=== PATIENT | female | born 1955 | race Caucasian/White ===

== ENCOUNTER 2020-06-16 08:25 | Observation (INO) ==
[~2020-06-16 08:25] MED LIST: Dexamethasone IV 8 MG in Premix IV 0 ML IV SCH; ETOPOSIDE IVPB SCH; NS 0.9% IVPB SCH; Sodium Phosphate ADULT ENEMA 133 ML BTL PR SCH
[2020-06-16] MEDS ORDERED: PALONOSETRON HCL 0.05 MG/ML (0.25 MG) SYRINGE (0.05 MG/ML) ONE (09:42)
[2020-06-16] MEDS ORDERED: Prochlorperazine 5 mg/ml 2 ml VIAL (10 mg) IV PRN (15:32)
[2020-06-16] MEDS ORDERED: Albuterol/Ipratropium NEB.SOL (2.5/0.5 MG) 3 ML NEB.SOLN INH PRN (16:52)
[2020-06-16] MEDS ORDERED: PEG 3000 GI LAVAGE 1 GALLON PO ONE (17:30)
[2020-06-16] MEDS ORDERED: Albuterol HFA INHALER 8 gm MDI INH PRN (17:32)
[2020-06-16] MEDS: NS 0.9% 1000 ml BAG 1,000 ML IV SCH (17:42)
[2020-06-16] MEDS: Mometasone/Formoter 200/5 MDI INH SCH (20:10)
[2020-06-16] MEDS: CMCS:Cyclosporine 0.05% OPHTH (NF) 0.4 ML VIAL BOTH EYES SCH (22:36)
[2020-06-16] MEDS: Enoxaparin 40 MG/0.4 ML SYR SUBCUT SCH ×2 (22:37→22:39)
[2020-06-17] MEDS: NS 0.9% 1000 ml BAG 1,000 ML IV SCH ×4 (00:19→23:02)
[2020-06-17 06:27] LABS: ABS Lymphocytes 0.7 10^3/ul (1.0-4.8); ABS Monocytes 0.3 10^3/ul (0-0.8); ABS Neutrophils 9.3 10^3/ul (1.5-7.7); Eosinophil % 0.1 %; Hematocrit 34 % (35-47); Hemoglobin 11.3 g/dL (12.0-16.0); Lymphocyte % 6.6 %; Mean Corpuscular HGB Conc 34 g/dL (31-36); Mean Corpuscular Hemoglobin 32 pg (27-31); Mean Corpuscular Volume 95 fL (80-97); Mean Platelet Volume 7.8 fL (7.4-10.4); Platelet Count 403 10^3/uL (150-450); Red Blood Count 3.54 10^6 /uL (3.70-4.87); Red Cell Distribution Width 14 % (10-15); White Blood Count 10.3 10^3/uL (3.5-10.8)
[2020-06-17 06:47] LABS: Albumin 3.4 g/dL (3.2-5.2); Albumin/Globulin Ratio 1.4 (1-3); BUN/Creatinine Ratio 40.7 (8-20); Calcium 8.2 mg/dL (8.6-10.3); Globulin 2.5 g/dL (2-4); Potassium 4.4 mmol/L (3.5-5.0); Total Bilirubin 0.3 mg/dL (0.2-1.0); Total Protein 5.9 g/dL (6.4-8.9)
[2020-06-17] MEDS: CMCS:Cyclosporine 0.05% OPHTH (NF) 0.4 ML VIAL BOTH EYES SCH ×2 (07:43→20:43)
[2020-06-17] MEDS: Mometasone/Formoter 200/5 MDI INH SCH ×2 (12:02→20:10)
[2020-06-17] MEDS: SPIRIVA Respimat (tiotropium) 2.5 mcg/inh Inhaler INH SCH (12:04)
[2020-06-17] MEDS ORDERED: Dexamethasone IV 4 MG/ML VIAL 1 ml VIAL IV SLOW PU ONE (14:00)
[2020-06-17] MEDS ORDERED: NS 0.9% IVPB ONE (14:30)
[2020-06-17] MEDS ORDERED: ETOPOSIDE IVPB ONE (14:30)
[2020-06-17] MEDS: Enoxaparin 40 MG/0.4 ML SYR SUBCUT SCH (22:24)
[2020-06-18 05:50] LABS: ABS Lymphocytes 0.7 10^3/ul (1.0-4.8); ABS Monocytes 0.1 10^3/ul (0-0.8); ABS Neutrophils 8.4 10^3/ul (1.5-7.7); Eosinophil % 0.4 %; Hematocrit 36 % (35-47); Hemoglobin 11.9 g/dL (12.0-16.0); Lymphocyte % 7.3 %; Mean Corpuscular HGB Conc 33 g/dL (31-36); Mean Corpuscular Hemoglobin 31 pg (27-31); Mean Corpuscular Volume 95 fL (80-97); Mean Platelet Volume 7.3 fL (7.4-10.4); Platelet Count 354 10^3/uL (150-450); Red Blood Count 3.81 10^6 /uL (3.70-4.87); Red Cell Distribution Width 14 % (10-15); White Blood Count 9.2 10^3/uL (3.5-10.8)
[2020-06-18 06:07] LABS: Albumin 3.1 g/dL (3.2-5.2); Albumin/Globulin Ratio 1.2 (1-3); BUN/Creatinine Ratio 28.6 (8-20); Calcium 8.3 mg/dL (8.6-10.3); EGFR African American 154.3 (>60); EGFR Non-African American 127.6 (>60); Globulin 2.5 g/dL (2-4); Potassium 4.4 mmol/L (3.5-5.0); Total Bilirubin 0.4 mg/dL (0.2-1.0); Total Protein 5.6 g/dL (6.4-8.9)
[2020-06-18] MEDS: NS 0.9% 1000 ml BAG 1,000 ML IV SCH (06:13)
[2020-06-18] MEDS: Mometasone/Formoter 200/5 MDI INH SCH (07:09)
[2020-06-18] MEDS: SPIRIVA Respimat (tiotropium) 2.5 mcg/inh Inhaler INH SCH (07:10)
[2020-06-18] MEDS: CMCS:Cyclosporine 0.05% OPHTH (NF) 0.4 ML VIAL BOTH EYES SCH (08:59)
[2020-06-18 11:06] VITALS: BP 96/83
== END 2020-06-18 16:10 | disposition home or self-care (01) ==
LOC: CHOA 08:25 → SSU 08:25
PROVIDERS: ADMIT Internal Medicine Hematology & Oncology; ATTEND Internal Medicine Hematology & Oncology

== ENCOUNTER 2020-10-02 06:30 | Inpatient (IN) ==
[2020-10-02] MEDS ORDERED: NS 0.9% 1000 ml BAG 1,000 ML IV ONE (07:03)
[2020-10-02 07:45] LABS: ABS Lymphocytes 1.6 10^3/ul (1.0-4.8); ABS Monocytes 0.6 10^3/ul (0-0.8); ABS Neutrophils 3.4 10^3/ul (1.5-7.7); Eosinophil % 0.8 %; Hematocrit 36 % (35-47); Hemoglobin 12.2 g/dL (12.0-16.0); Lymphocyte % 27.2 %; Mean Corpuscular HGB Conc 34 g/dL (31-36); Mean Corpuscular Hemoglobin 37 pg (27-31); Mean Corpuscular Volume 110 fL (80-97); Mean Platelet Volume 7.2 fL (7.4-10.4); Platelet Count 276 10^3/uL (150-450); Red Blood Count 3.26 10^6 /uL (3.70-4.87); Red Cell Distribution Width 15 % (10-15); White Blood Count 5.7 10^3/uL (3.5-10.8)
[2020-10-02 07:56] LABS: Albumin 3.7 g/dL (3.2-5.2); Albumin/Globulin Ratio 1.5 (1-3); Calcium 8.5 mg/dL (8.6-10.3); EGFR African American 107.6 (>60); EGFR Non-African American 88.9 (>60); Globulin 2.4 g/dL (2-4); Potassium 3.7 mmol/L (3.5-5.0); Total Bilirubin 0.4 mg/dL (0.2-1.0); Total Protein 6.1 g/dL (6.4-8.9)
[2020-10-02] MEDS ORDERED: Dexamethasone IV 4 MG/ML VIAL 1 ml VIAL IV SLOW PU ONE (08:18)
[2020-10-02 09:32] LABS: Urine Appearance Clear; Urine Bilirubin Negative (Negative); Urine Blood Negative (Negative); Urine Color Yellow; Urine Glucose Negative (Negative); Urine Ketones Negative (Negative); Urine Nitrite Negative (Negative); Urine Protein Negative (Negative); Urine Specific Gravity 1.005 (1.002-1.030); Urine Urobilinogen Negative (Negative)
[2020-10-02] MEDS ORDERED: levETIRAcetam 1000MG IVPREMIX 1,000 MG/100 ML BAG IVPB ONE (13:09)
[2020-10-02] MEDS ORDERED: Albuterol/Ipratropium NEB.SOL (2.5/0.5 MG) 3 ML NEB.SOLN INH SCH (14:00)
[2020-10-02] MEDS: Dexamethasone IV 4 MG/ML VIAL 1 ml VIAL IV SLOW PU SCH ×2 (14:26→20:58)
[2020-10-02] MEDS: NS 0.9% 1000 ml BAG 1,000 ML IV SCH (14:27)
[2020-10-02] MEDS ORDERED: Albuterol/Ipratropium NEB.SOL (2.5/0.5 MG) 3 ML NEB.SOLN INH PRN (15:22)
[2020-10-03] MEDS: Dexamethasone IV 4 MG/ML VIAL 1 ml VIAL IV SLOW PU SCH ×4 (01:11→19:57)
[2020-10-03] MEDS: levETIRAcetam 500 MG IVPREMIX 500 MG/100 ML BAG IV SCH ×2 (01:12→13:43)
[2020-10-03] MEDS: NS 0.9% 1000 ml BAG 1,000 ML IV SCH (04:21)
[2020-10-03 09:28] LABS: ABS Lymphocytes 0.7 10^3/ul (1.0-4.8); ABS Monocytes 0.2 10^3/ul (0-0.8); ABS Neutrophils 3.2 10^3/ul (1.5-7.7); Hematocrit 33 % (35-47); Hemoglobin 11.2 g/dL (12.0-16.0); Mean Corpuscular HGB Conc 34 g/dL (31-36); Mean Corpuscular Hemoglobin 37 pg (27-31); Mean Corpuscular Volume 110 fL (80-97); Mean Platelet Volume 7.8 fL (7.4-10.4); Platelet Count 264 10^3/uL (150-450); Red Blood Count 3.01 10^6 /uL (3.70-4.87); Red Cell Distribution Width 14 % (10-15); White Blood Count 4.1 10^3/uL (3.5-10.8)
[2020-10-03 09:38] LABS: EGFR African American 213.4 (>60); EGFR Non-African American 176.4 (>60); Potassium 3.6 mmol/L (3.5-5.0)
[2020-10-03 12:01] LABS: Corrected Retic Count 0.6 % (0.5-1.5); Hematocrit for Retic CNT 34 % (35-47); Immature Retic Fraction 0.32; RBC Retic Count 3.04 10^6/uL (3.70-4.87)
[2020-10-03 12:08] LABS: % Iron Saturation 18 % (15-55); Iron 47 ug/dL (50-212); Total Iron Binding Capacity 266 mcg/dL (250-450); Transferrin 190 mg/dL (203-362); Unsaturated Iron Binding < 251 ug/dL
[2020-10-03 12:33] LABS: Ferritin 57.5 ng/mL (11-307)
[2020-10-03 12:36] LABS: Folate 7.58 ng/mL (5.90-24.80)
[2020-10-03 12:37] LABS: Vitamin B12 173 pg/mL (180-914)
[2020-10-03] MEDS: Cyanocobalamin INJ 1,000 MCG/ML VIAL 1 ML VIAL IM SCH (13:25)
[2020-10-04] MEDS: levETIRAcetam 500 MG IVPREMIX 500 MG/100 ML BAG IV SCH ×2 (01:09→14:38)
[2020-10-04] MEDS: Dexamethasone IV 4 MG/ML VIAL 1 ml VIAL IV SLOW PU SCH ×3 (01:10→14:38)
[2020-10-04] MEDS: Cyanocobalamin INJ 1,000 MCG/ML VIAL 1 ML VIAL IM SCH (10:29)
[2020-10-04 17:49] LABS: Calcium 8.2 mg/dL (8.6-10.3); EGFR African American 144.1 (>60); EGFR Non-African American 119.1 (>60)
[2020-10-04] MEDS ORDERED: Gadoteridol (CONTRAST) 279.3 MG/ML 10 ML IV ONE (18:09)
[2020-10-04 18:56] LABS: Potassium 4.2 mmol/L (3.5-5.0)
[2020-10-05] MEDS: Cyanocobalamin INJ 1,000 MCG/ML VIAL 1 ML VIAL IM SCH (08:47)
[2020-10-05 11:05] VITALS: BP 128/89
== END 2020-10-05 13:36 | disposition home or self-care (01) ==
LOC: ED 06:30 → ICU 10:21 → SSU 10-03 15:31
PROVIDERS: ADMIT Internal Medicine; ATTEND Internal Medicine Hematology & Oncology

== ENCOUNTER 2020-10-10 06:58 | Inpatient (IN) ==
[2020-10-10] MEDS ORDERED: NS 0.9% 1000 ml BAG 1,000 ML IV ONE ×2 (07:17→11:09)
[2020-10-10 08:24] LABS: ABS Lymphocytes 1.4 10^3/ul (1.0-4.8); ABS Monocytes 1.2 10^3/ul (0-0.8); ABS Neutrophils 7.7 10^3/ul (1.5-7.7); Eosinophil % 0.1 %; Hematocrit 47 % (35-47); Hemoglobin 16.1 g/dL (12.0-16.0); Lymphocyte % 13.9 %; Mean Corpuscular HGB Conc 34 g/dL (31-36); Mean Corpuscular Hemoglobin 37 pg (27-31); Mean Corpuscular Volume 107 fL (80-97); Mean Platelet Volume 8.3 fL (7.4-10.4); Platelet Count 262 10^3/uL (150-450); Red Blood Count 4.37 10^6 /uL (3.70-4.87); Red Cell Distribution Width 14 % (10-15); White Blood Count 10.3 10^3/uL (3.5-10.8)
[2020-10-10 08:31] LABS: Albumin 3.9 g/dL (3.2-5.2); Albumin/Globulin Ratio 1.3 (1-3); Calcium 7.5 mg/dL (8.6-10.3); EGFR African American 105.7 (>60); EGFR Non-African American 87.4 (>60); Globulin 2.9 g/dL (2-4); Magnesium 2.8 mg/dL (1.9-2.7); Potassium 4.6 mmol/L (3.5-5.0); Total Bilirubin 0.8 mg/dL (0.2-1.0); Total Protein 6.8 g/dL (6.4-8.9)
[2020-10-10] MEDS ORDERED: Ondansetron 4 mg VIAL 2 MG/ML 2 ml VIAL IV PRN (11:09)
[2020-10-10] MEDS ORDERED: Albuterol/Ipratropium NEB.SOL (2.5/0.5 MG) 3 ML NEB.SOLN INH PRN (11:34)
[2020-10-10] MEDS: Enoxaparin 40 MG/0.4 ML SYR SUBCUT SCH (12:56)
[2020-10-10] MEDS ORDERED: Albuterol 2.5mg/3 ml (0.083%) NEB.SOLN INH PRN (14:20)
[2020-10-10] MEDS: NS 0.9% 1000 ml BAG 1,000 ML IV SCH (16:42)
[2020-10-10] MEDS: Mometasone/Formoter 200/5 MDI INH SCH ×2 (19:49→19:53)
[2020-10-11] MEDS: CMC:Cyclosporine 0.05% OPHTH (NF) 0.4 ML VIAL BOTH EYES SCH ×3 (00:35→20:22)
[2020-10-11 05:57] LABS: ABS Lymphocytes 0.8 10^3/ul (1.0-4.8); ABS Monocytes 0.4 10^3/ul (0-0.8); ABS Neutrophils 2.9 10^3/ul (1.5-7.7); Hematocrit 38 % (35-47); Hemoglobin 13.1 g/dL (12.0-16.0); Lymphocyte % 20.8 %; Mean Corpuscular HGB Conc 35 g/dL (31-36); Mean Corpuscular Hemoglobin 37 pg (27-31); Mean Corpuscular Volume 107 fL (80-97); Mean Platelet Volume 7.6 fL (7.4-10.4); Platelet Count 235 10^3/uL (150-450); Red Blood Count 3.54 10^6 /uL (3.70-4.87); Red Cell Distribution Width 13 % (10-15); White Blood Count 4.1 10^3/uL (3.5-10.8)
[2020-10-11 06:05] LABS: Calcium 6.5 mg/dL (8.6-10.3); EGFR African American 174.7 (>60); EGFR Non-African American 144.4 (>60); Potassium 4.6 mmol/L (3.5-5.0)
[2020-10-11] MEDS: NS 0.9% 1000 ml BAG 1,000 ML IV SCH (06:57)
[2020-10-11] MEDS: SPIRIVA Respimat (tiotropium) 2.5 mcg/inh Inhaler INH SCH (09:24)
[2020-10-11] MEDS: Mometasone/Formoter 200/5 MDI INH SCH ×2 (09:37→20:49)
[2020-10-11] MEDS: Enoxaparin 40 MG/0.4 ML SYR SUBCUT SCH (10:42)
[2020-10-11] MEDS ORDERED: Gadoteridol (CONTRAST) 279.3 MG/ML 10 ML IV ONE (19:16)
[2020-10-12 01:20] LABS: Urine Appearance Clear; Urine Bilirubin Negative (Negative); Urine Blood Negative (Negative); Urine Color Yellow; Urine Glucose Negative (Negative); Urine Ketones Negative (Negative); Urine Nitrite Negative (Negative); Urine Protein Negative (Negative); Urine Specific Gravity 1.013 (1.002-1.030); Urine Urobilinogen Negative (Negative)
[2020-10-12] MEDS: NS 0.9% 1000 ml BAG 1,000 ML IV SCH (05:35)
[2020-10-12] MEDS: Mometasone/Formoter 200/5 MDI INH SCH ×2 (08:34→19:09)
[2020-10-12] MEDS: SPIRIVA Respimat (tiotropium) 2.5 mcg/inh Inhaler INH SCH (08:35)
[2020-10-12] MEDS: CMC:Cyclosporine 0.05% OPHTH (NF) 0.4 ML VIAL BOTH EYES SCH ×2 (09:18→22:52)
[2020-10-12 10:29] LABS: ABS Monocytes 0.6 10^3/ul (0-0.8); ABS Neutrophils 3.7 10^3/ul (1.5-7.7); Hematocrit 40 % (35-47); Hemoglobin 13.6 g/dL (12.0-16.0); Lymphocyte % 18.2 %; Mean Corpuscular HGB Conc 34 g/dL (31-36); Mean Corpuscular Hemoglobin 36 pg (27-31); Mean Corpuscular Volume 108 fL (80-97); Platelet Count 223 10^3/uL (150-450); Red Blood Count 3.74 10^6 /uL (3.70-4.87); Red Cell Distribution Width 14 % (10-15); White Blood Count 5.3 10^3/uL (3.5-10.8)
[2020-10-12 10:48] LABS: Albumin 3.4 g/dL (3.2-5.2); Albumin/Globulin Ratio 1.6 (1-3); Calcium 7.4 mg/dL (8.6-10.3); EGFR African American 150.8 (>60); EGFR Non-African American 124.6 (>60); Globulin 2.1 g/dL (2-4); Potassium 4.3 mmol/L (3.5-5.0); Total Bilirubin 0.5 mg/dL (0.2-1.0); Total Protein 5.5 g/dL (6.4-8.9)
[2020-10-12] MEDS: Enoxaparin 40 MG/0.4 ML SYR SUBCUT SCH (13:49)
[2020-10-12] MEDS ORDERED: CALCIUM GLUCONATE 1GM/50ML NS 1 GM/50 ML BAG IV ONE (14:26)
[2020-10-13] MEDS: CMC:Cyclosporine 0.05% OPHTH (NF) 0.4 ML VIAL BOTH EYES SCH ×2 (07:38→19:50)
[2020-10-13] MEDS: SPIRIVA Respimat (tiotropium) 2.5 mcg/inh Inhaler INH SCH (08:06)
[2020-10-13] MEDS: Mometasone/Formoter 200/5 MDI INH SCH ×2 (08:09→19:57)
[2020-10-13] MEDS: Enoxaparin 40 MG/0.4 ML SYR SUBCUT SCH (13:05)
[2020-10-14 03:32] VITALS: BP 94/58
== END 2020-10-14 07:12 | disposition swing bed (61) | DRG 181 ==
LOC: ED 06:58 → MED 11:09
PROVIDERS: ADMIT Pediatrics; ATTEND Hospitalist

== ENCOUNTER 2020-10-14 07:31 | Inpatient (IN) ==
[2020-10-14] MEDS ORDERED: Albuterol HFA INHALER 8 gm MDI INH PRN (11:07)
[2020-10-14] MEDS ORDERED: Ondansetron 4 mg VIAL 2 MG/ML 2 ml VIAL IV PRN (11:08)
[2020-10-14] MEDS: CMC:Cyclosporine 0.05% OPHTH (NF) 0.4 ML VIAL BOTH EYES SCH ×2 (11:24→19:39)
[2020-10-14] MEDS: Enoxaparin 40 MG/0.4 ML SYR SUBCUT SCH (11:25)
[2020-10-14] MEDS: SPIRIVA Respimat (tiotropium) 2.5 mcg/inh Inhaler INH SCH (15:14)
[2020-10-14] MEDS: Mometasone/Formoter 200/5 MDI INH SCH (20:47)
[2020-10-15] MEDS: SPIRIVA Respimat (tiotropium) 2.5 mcg/inh Inhaler INH SCH (08:13)
[2020-10-15] MEDS: Mometasone/Formoter 200/5 MDI INH SCH ×2 (08:13→19:30)
[2020-10-15] MEDS: Enoxaparin 40 MG/0.4 ML SYR SUBCUT SCH (11:34)
[2020-10-15] MEDS: CMC:Cyclosporine 0.05% OPHTH (NF) 0.4 ML VIAL BOTH EYES SCH ×2 (11:45→20:51)
[2020-10-16] MEDS: SPIRIVA Respimat (tiotropium) 2.5 mcg/inh Inhaler INH SCH (08:11)
[2020-10-16] MEDS: Mometasone/Formoter 200/5 MDI INH SCH ×2 (08:11→20:25)
[2020-10-16] MEDS: CMC:Cyclosporine 0.05% OPHTH (NF) 0.4 ML VIAL BOTH EYES SCH ×2 (09:07→20:53)
[2020-10-16] MEDS: Enoxaparin 40 MG/0.4 ML SYR SUBCUT SCH (12:39)
[2020-10-17] MEDS: Mometasone/Formoter 200/5 MDI INH SCH ×2 (07:38→20:39)
[2020-10-17] MEDS: SPIRIVA Respimat (tiotropium) 2.5 mcg/inh Inhaler INH SCH (07:39)
[2020-10-17] MEDS: CMC:Cyclosporine 0.05% OPHTH (NF) 0.4 ML VIAL BOTH EYES SCH ×2 (09:07→20:46)
[2020-10-17] MEDS: Enoxaparin 40 MG/0.4 ML SYR SUBCUT SCH (12:18)
[2020-10-18] MEDS: Mometasone/Formoter 200/5 MDI INH SCH ×2 (07:41→19:39)
[2020-10-18] MEDS: SPIRIVA Respimat (tiotropium) 2.5 mcg/inh Inhaler INH SCH (07:42)
[2020-10-18] MEDS: CMC:Cyclosporine 0.05% OPHTH (NF) 0.4 ML VIAL BOTH EYES SCH ×2 (11:28→20:40)
[2020-10-18] MEDS: Enoxaparin 40 MG/0.4 ML SYR SUBCUT SCH (11:29)
[2020-10-19] MEDS: CMC:Cyclosporine 0.05% OPHTH (NF) 0.4 ML VIAL BOTH EYES SCH ×2 (08:01→19:54)
[2020-10-19] MEDS: Mometasone/Formoter 200/5 MDI INH SCH ×2 (08:07→19:33)
[2020-10-19] MEDS: SPIRIVA Respimat (tiotropium) 2.5 mcg/inh Inhaler INH SCH (08:08)
[2020-10-19] MEDS: Enoxaparin 40 MG/0.4 ML SYR SUBCUT SCH (12:27)
[2020-10-20] MEDS: SPIRIVA Respimat (tiotropium) 2.5 mcg/inh Inhaler INH SCH (07:27)
[2020-10-20] MEDS: Mometasone/Formoter 200/5 MDI INH SCH ×2 (07:29→20:58)
[2020-10-20] MEDS: CMC:Cyclosporine 0.05% OPHTH (NF) 0.4 ML VIAL BOTH EYES SCH ×2 (08:01→19:20)
[2020-10-20] MEDS: Enoxaparin 40 MG/0.4 ML SYR SUBCUT SCH (12:41)
[2020-10-21] MEDS: CMC:Cyclosporine 0.05% OPHTH (NF) 0.4 ML VIAL BOTH EYES SCH ×2 (08:32→20:46)
[2020-10-21] MEDS: SPIRIVA Respimat (tiotropium) 2.5 mcg/inh Inhaler INH SCH (09:20)
[2020-10-21] MEDS: Mometasone/Formoter 200/5 MDI INH SCH ×2 (09:22→20:10)
[2020-10-21] MEDS: Enoxaparin 40 MG/0.4 ML SYR SUBCUT SCH (12:45)
[2020-10-22] MEDS: CMC:Cyclosporine 0.05% OPHTH (NF) 0.4 ML VIAL BOTH EYES SCH (07:33)
[2020-10-22 07:38] VITALS: BP 103/70
[2020-10-22] MEDS: Mometasone/Formoter 200/5 MDI INH SCH (09:31)
[2020-10-22] MEDS: SPIRIVA Respimat (tiotropium) 2.5 mcg/inh Inhaler INH SCH (09:32)
== END 2020-10-22 11:00 | disposition swing bed (61) | DRG 948 ==
LOC: MED 07:52
PROVIDERS: ADMIT Hospitalist; ATTEND Internal Medicine